=== PATIENT | female | born 1945 | race Caucasian/White ===

== ENCOUNTER → 2016-11-06 | Outpatient (CLI) | payer OTHER ==
[~2016-11-06] MED LIST: ACET325T96 PO; ADLSR60 PO; ANAS1TAB19 PO; CHOL100010 PO; LPR50X PO; MAGN400T6 PO; POTA-335 PO; SERT-234 PO; TRIATAB3 PO; WARF3TAB6 PO
[2016-11-06 18:12] LABS: ALKALINE PHOSPHATASE 141 U/L (45-117); ALT/SGPT 30 U/L (12-78); AST/SGOT 20 U/L (15-37); BLOOD UREA NITROGEN 16 mg/dl (7-18); BUN/CREATININE RATIO 22.2 (10-20); CALCIUM 9.8 mg/dl (8.5-10.1); CARBON DIOXIDE 30 mmol/L (21-32); CHLORIDE 101 mmol/L (98-107); CREATININE 0.71 mg/dl (0.60-1.20); GLUCOSE 91 mg/dl (70-99); POTASSIUM 3.6 mmol/L (3.5-5.1); SODIUM 138 mmol/L (136-145)
--- NOTE | 2016-11-13 13:17 | CODING QUERY MEDICAL NECESSITY ---
SUPPORTING DIAGNOSIS NEEDED Dr. Travis, A supporting diagnosis is required for the test/procedure performed on this patient in order for us to be reimbursed by the patient's insurance. Please provide a supporting diagnosis for the following test/procedure listed below next to the test name along with your signature. *If there is no additional diagnosis for this patient that would support the following test/procedure please document that below next to the test/procedure. Test(s)/Procedure(s) that require a supporting diagnosis: * ([id number]) B12 VITAMIN LEVEL DIAGNOSIS: DATE OF SERVICE: 11/06/16 Provider Signature: Date: Thank you Kian Shafer [facility] Information Management Once completed, please kindly fax back to [phone] For questions please call [phone]
== END | disposition home or self-care (01) ==
LOC: C.LABPVFM 16:13
PROVIDERS: ATTEND Family Medicine
DX: I10 Essential (primary) hypertension (principal); E55.9 Vitamin D deficiency, unspecified; G62.9 Polyneuropathy, unspecified

== ENCOUNTER → 2017-03-12 | Outpatient (CLI) | payer OTHER ==
--- NOTE | 2017-03-13 07:44 | MAMMOGRAPHY REPORT ---
BILATERAL DIGITAL SCREENING MAMMOGRAM TOMOSYNTHESIS WITH CAD: 03/12/2017 CLINICAL HISTORY: Patient presents for routine screening. S/P bilateral augmentation. TECHNIQUE: Breast tomosynthesis in addition to standard 2D mammography was performed. Current study was also evaluated with a Computer Aided Detection (CAD) system. COMPARISON: Comparison is made to exams dated: 02/27/2016 ultrasound, 02/27/2016 mammogram, 02/24/2015 ultrasound, 02/24/2015 mammogram, 08/24/2014 ultrasound, and 08/24/2014 mammogram - [facility]. BREAST COMPOSITION: The tissue of both breasts is almost entirely fatty. FINDINGS: There are stable post treatment changes in the right breast, with expected architectural di stortion in the far posterior superior breast, and slight asymmetry of the size of the breast. There are diffuse rodlike secretory calcifications bilaterally. No new suspicious mass, architectural dis tortion or cluster of microcalcifications is seen. IMPRESSION: ACR BI-RADS CATEGORY 1: NEGATIVE There is no mammographic evidence of malignancy. A 1 year screening mammogram is recommended. The pa tient will receive written notification of the results. Approximately 10% of breast cancers are not detected with mammography. A negative mammographic report should not delay biopsy if a clinically suggestive mass is present. Tawny Osullivan M.D. ay/:03/12/2017 17:26:29 Treatment Plant Operator: Lizeth Torres, [facility] letter sent: Normal 1/2 BI-RADS Code: ACR BI-RADS Category 1: Negative
== END | disposition home or self-care (01) ==
LOC: C.MAMM 11:39
PROVIDERS: ATTEND Surgery
DX: Z12.31 Encounter for screening mammogram for malignant neoplasm of breast (principal)

== ENCOUNTER → 2017-04-18 | Outpatient (CLI) | payer OTHER ==
--- NOTE | 2017-04-26 08:11 | CODING QUERY MEDICAL NECESSITY ---
SUPPORTING DIAGNOSIS NEEDED A supporting diagnosis is required for the test/procedure performed on this patient in order for us to be reimbursed by the patient's insurance. Please provide a supporting diagnosis for the following test/procedure listed below next to the test name along with your signature. *If there is no additional diagnosis for this patient that would support the following test/procedure please document that below next to the test/procedure. Test(s)/Procedure(s) that require a supporting diagnosis: * DXA, BONE DENSITY AXIAL DIAGNOSIS: Provider Signature: Date: Thank you Celia Sedicidodici Information Management Once completed, please kindly fax back to [phone] For questions please call [phone]
== END | disposition home or self-care (01) ==
LOC: C.MAMM 13:04
PROVIDERS: ATTEND Nurse Practitioner Family
DX: C50.919 Malignant neoplasm of unspecified site of unspecified female breast (principal); Z79.890 Hormone replacement therapy

== ENCOUNTER → 2017-11-07 | Outpatient (CLI) | payer OTHER ==
[~2017-11-07] MED LIST changes: +ACET-1693 PO; -ACET325T96 PO; -LPR50X PO; +METO-217 PO
[2017-11-07 13:15] LABS: ALBUMIN 3.9 gm/dl (3.4-5.0); ALT/SGPT 31 U/L (12-78); AST/SGOT 23 U/L (15-37); BLOOD UREA NITROGEN 14 mg/dl (7-18); CALCIUM 9.8 mg/dl (8.5-10.1); CARBON DIOXIDE 32 mmol/L (21-32); CREATININE 0.86 mg/dl (0.60-1.20); GLUCOSE 105 mg/dl (70-99); POTASSIUM 4.4 mmol/L (3.5-5.1); SODIUM 139 mmol/L (136-145)
[2017-11-07 13:17] LABS: ALKALINE PHOSPHATASE 124 U/L (45-117); CHOLESTEROL 281 mg/dl (0-200); LDL CHOLESTEROL CALCULATED 200 mg/dl; TOTAL PROTEIN 7.8 gm/dl (6.4-8.2)
== END | disposition home or self-care (01) ==
LOC: C.LABBFT 07:53
PROVIDERS: ATTEND Family Medicine
DX: I10 Essential (primary) hypertension (principal); E87.6 Hypokalemia; E78.2 Mixed hyperlipidemia; C50.919 Malignant neoplasm of unspecified site of unspecified female breast; I48.91 Unspecified atrial fibrillation

== ENCOUNTER → 2018-03-14 | Outpatient (CLI) | payer OTHER ==
[~2018-03-14] MED LIST changes: -ANAS1TAB19 PO; +ANAS1TAB59 PO
--- NOTE | 2018-03-14 15:28 | MAMMOGRAPHY REPORT ---
BILATERAL DIGITAL DIAGNOSTIC MAMMOGRAM TOMOSYNTHESIS WITH CAD AND TARGETED RIGHT ULTRASOUND: 8 CLINICAL HISTORY: History of right breast cancer status post lumpectomy. The patient reports intermit tent puffiness and discomfort at her surgical bed in the right breast. TECHNIQUE: The study was acquired using full field digital technology and interpreted from soft copy. Breast tomosynthesis in addition to standard 2D mammography was performed. Current study was also ev aluated with a Computer Aided Detection (CAD) system. Bilateral CC and MLO 2D and tomosynthesis imag es were obtained. COMPARISON: Comparison is made to exams dated: 03/12/2017 mammogram, 02/27/2016 mammogram, 02/24/2015 ma mmogram, 08/24/2014 mammogram, 02/01/2014 specimen, and 01/01/2014 ultrasound - [facility]. BREAST COMPOSITION: The tissue of both breasts is almost entirely fatty. FINDINGS: Again noted are postsurgical changes in the right upper inner quadrant posteriorly from prior lumpect brayden, including stable density, architectural distortion, and surgical clips at the lumpectomy bed. N ote that the lumpectomy bed is difficult to include mammographically due to the far posterior locatio n. Repeat MLO views were obtained which better visualize the lumpectomy bed which is stable on the M LO views compared to prior exams including the February 2016 exam. The remainder of both breasts are stable compared to prior exams, without suspicious masses, calcific ations, or areas of architectural distortion noted. Scattered bilateral benign-appearing calcificati ons are not significantly changed. A linear scar marker overlies the right superior breast. Targeted ultrasound was performed of the surgical bed in the right 1:00 breast at the site of puffine ss and discomfort described by the patient. At the surgical bed there is an ill-defined hypoechoic t issue which measures approximately 2.4 x 1.1 x 2.0 cm. Similar findings were seen on some of the prio r exams including the 2014 exam although it is difficult to make an accurate comparison due to techni stephanie differences and differences in scanning and measurement technique. Given that the density at the lumpectomy bed appears stable mammographically to multiple prior exams, the ultrasound findings are probably benign and likely represent postsurgical changes. IMPRESSION: ACR-BI-RADS CATEGORY 3: PROBABLY BENIGN, ULTRASOUND ACR-BI-RADS CATEGORY 3: PROBABLY SOLIS GN 1. Hypoechoic tissue at the lumpectomy bed in the right 1:00 breast is probably benign and likely re presents postsurgical changes. Recommend follow-up diagnostic tomosynthesis mammograms and possible ultrasound of the right breast in 6 months to confirm stability. Also recommend clinical follow-up f or intermittent puffiness and discomfort at the surgical bed. 2. No mammographic evidence of malignancy in the left breast. Recommend follow-up in 1 year. 3. Consider additional screening with breast MRI, given the personal history of breast cancer and gi mannie that the lumpectomy bed is not well included mammographically due to the far posterior location. The patient has been verbally notified of the results. Some breast cancers are not detected with mammography. A negative mammographic report should not indy y biopsy if a clinically suggestive mass is present. Eloise Larson M.D. ah/:03/14/2018 11:36:54 Spray Ii Painter: RT Renzo(R)(M), [facility]; Eloise Larson MD, [facility] letter sent: Follow Up Recommended 3 OVERALL STUDY BIRADS: 3 Probably benign
== END | disposition home or self-care (01) ==
LOC: C.MAMM 09:25
PROVIDERS: ATTEND Family Medicine
DX: Z12.31 Encounter for screening mammogram for malignant neoplasm of breast (principal); Z85.3 Personal history of malignant neoplasm of breast; R92.8 Other abnormal and inconclusive findings on diagnostic imaging of breast

== ENCOUNTER → 2018-03-18 | Outpatient (CLI) | payer OTHER ==
[2018-03-18 17:13] LABS: BASO % 0.5 %; BASO ABS # 0.03 K/uL (0-0.2); EOS % 1.9 %; EOS ABS # 0.12 K/uL (0-0.5); HEMATOCRIT 44.1 % (37-47); HEMOGLOBIN 14.3 g/dL (12.0-16.0); IG# 0.02 K/uL (0.00-0.02); LYMPH % 28.8 %; LYMPH ABS # 1.83 K/uL (1.2-3.4); MEAN CORPUSCULAR HEMOGLOBIN 27.6 pg (25-34); MEAN CORPUSCULAR HGB CONC 32.4 g/dl (32-36); MEAN PLATELET VOLUME 10.7 fL (7.4-10.4); MONO % 10.7 %; MONO ABS # 0.68 K/uL (0.11-0.59); NEUT % 57.8 %; NEUT ABS # 3.67 K/uL (1.4-6.5); PLATELET COUNT 194 K/uL (130-400); RED CELL DISTRIBUTION WIDTH CV 15.1 % (11.5-14.5); RED CELL DISTRIBUTION WIDTH SD 47.6 fL (36.4-46.3); WHITE BLOOD COUNT 6.35 K/uL (4.8-10.8)
[2018-03-18 17:26] LABS: ALBUMIN 3.9 gm/dl (3.4-5.0); ALKALINE PHOSPHATASE 118 U/L (45-117); ALT/SGPT 31 U/L (12-78); AST/SGOT 25 U/L (15-37); BLOOD UREA NITROGEN 16 mg/dl (7-18); CALCIUM 9.6 mg/dl (8.5-10.1); CARBON DIOXIDE 30 mmol/L (21-32); CREATININE 0.82 mg/dl (0.60-1.20); GLUCOSE 102 mg/dl (70-99); POTASSIUM 4.7 mmol/L (3.5-5.1); SODIUM 137 mmol/L (136-145); TOTAL PROTEIN 7.7 gm/dl (6.4-8.2)
== END | disposition home or self-care (01) ==
LOC: C.LABBFT 12:30
PROVIDERS: ATTEND Nurse Practitioner Family
DX: Z85.3 Personal history of malignant neoplasm of breast (principal); I10 Essential (primary) hypertension; E87.6 Hypokalemia; E78.2 Mixed hyperlipidemia; C50.919 Malignant neoplasm of unspecified site of unspecified female breast; F41.9 Anxiety disorder, unspecified; I48.91 Unspecified atrial fibrillation